=== PATIENT | male | born 1950 | race African-American/Black ===

== ENCOUNTER 2019-01-15 18:40 | Inpatient (IN) | payer MEDICARE, BC ==
[~2019-01-15] VITALS: Ht 177.8 cm; Wt 75.4 kg
[2019-01-15 19:50] VITALS: BP 142/92
[2019-01-15] MEDS ORDERED: ACETAMINOPHEN 325 MG TABLET PO PRN (20:45)
[2019-01-15] MEDS ORDERED: FLUTICASONE PROPIONATE 50 MCG/SPRAY 16 GM NASAL SPRAY NASAL PRN (21:00)
[2019-01-15] MEDS: SENNA 187 MG TABLET PO SCH (21:39)
[2019-01-15] MEDS: DOCUSATE SODIUM 100 MG CAPSULE PO SCH (21:39)
[2019-01-15] MEDS: APIXABAN 5 MG TABLET PO SCH (21:40)
[2019-01-15] MEDS: ATORVASTATIN CALCIUM 40 MG TABLET PO SCH (21:40)
[2019-01-15 23:00] VITALS: BP 140/82
[2019-01-16] MEDS: 0.9% SODIUM CHLORIDE 10 ML SYRINGE IVP SCH ×4 (00:17→23:24)
[2019-01-16 07:35] LABS: BASOPHILS % (AUTO) 0.8 % (0.0-2.0); EOSINOPHILS % (AUTO) 2.7 % (1.0-6.0); HEMATOCRIT 39.4 % (41-53); HEMOGLOBIN 13.5 g/dL (13.5-17.5); LYMPHOCYTES # (AUTO) 1.5 K/uL (1.0-4.8); LYMPHOCYTES % (AUTO) 39.7 % (22.0-44.0); MEAN CORPUSCULAR HEMOGLOBIN 32.8 pg (26.0-34.0); MEAN CORPUSCULAR HGB CONC 34.3 G/dL (31.0-37.0); MEAN CORPUSCULAR VOLUME 96 fL (80-100); MONOCYTES # (AUTO) 0.6 K/uL (0.1-1.0); MONOCYTES % (AUTO) 15.3 % (2.0-9.0); NEUTROPHILS # (AUTO) 1.6 K/uL (1.8-7.7); NEUTROPHILS % (AUTO) 41.5 % (40.0-70.0); PLATELET COUNT (AUTO) 182 K/uL (150-450); RED BLOOD CELL COUNT(AUTO) 4.12 MIL/uL (4.50-5.90); RED CELL DISTRIBUTION WIDTH 13.5 % (11.5-14.5)
[2019-01-16 08:06] LABS: ALANINE AMINOTRANSFERASE 18 U/L (12-78); ALBUMIN 3.5 g/dL (3.4-5.0); ALKALINE PHOSPHATASE 62 U/L (46-116); ANION GAP 9 mmol/L (8-16); ASPARTATE AMINOTRANSFERASE 16 U/L (15-37); BILIRUBIN,TOTAL 1.5 mg/dL (0.1-1.0); CARBON DIOXIDE 25 mmol/L (22-29); CHLORIDE 104 mmol/L (98-107); CREATININE 1.01 mg/dL (0.60-1.30); GLOMERULAR FILTR. RATE CALC > 60 mL/min (>60); GLUCOSE,RANDOM 94 mg/dL (70-110); POTASSIUM 3.8 mmol/L (3.5-5.1); SODIUM SERUM 138 mmol/L (136-145); TOTAL PROTEIN, SERUM 7.1 g/dL (6.4-8.2); UREA NITROGEN, BLOOD 12 mg/dL (7-18)
[2019-01-16] MEDS: CARVEDILOL 25 MG TABLET PO SCH ×2 (08:45→17:38)
[2019-01-16] MEDS: APIXABAN 5 MG TABLET PO SCH ×2 (08:46→21:08)
[2019-01-16] MEDS: TAMSULOSIN HCL 0.4 MG CAPSULE PO SCH (08:46)
[2019-01-16] MEDS: DOCUSATE SODIUM 100 MG CAPSULE PO SCH ×2 (08:46→21:08)
[2019-01-16] MEDS: ESCITALOPRAM OXALATE 10 MG TABLET PO SCH (08:46)
[2019-01-16] MEDS: CLOPIDOGREL BISULFATE 75 MG TABLET PO SCH (08:47)
[2019-01-16] MEDS: LISINOPRIL 20 MG TABLET PO SCH (08:47)
[2019-01-16 10:05] VITALS: BP 142/86
[2019-01-16] MEDS: HYDROCODONE/ACETAMINOPHEN 5-325 MG TABLET PO PRN (10:41)
[2019-01-16 15:50] VITALS: BP 139/84
[2019-01-16] MEDS: ATORVASTATIN CALCIUM 40 MG TABLET PO SCH (21:08)
[2019-01-16] MEDS: SENNA 187 MG TABLET PO SCH (21:08)
[2019-01-17 04:00] VITALS: BP 138/95
[2019-01-17] MEDS: CARVEDILOL 25 MG TABLET PO SCH ×2 (07:50→17:55)
[2019-01-17 07:54] VITALS: BP 128/71
[2019-01-17] MEDS: HYDROCODONE/ACETAMINOPHEN 5-325 MG TABLET PO PRN (07:54)
[2019-01-17] MEDS: APIXABAN 5 MG TABLET PO SCH ×2 (08:46→20:41)
[2019-01-17] MEDS: 0.9% SODIUM CHLORIDE 10 ML SYRINGE IVP SCH (08:46)
[2019-01-17] MEDS: TAMSULOSIN HCL 0.4 MG CAPSULE PO SCH (08:46)
[2019-01-17] MEDS: DOCUSATE SODIUM 100 MG CAPSULE PO SCH ×2 (08:47→20:41)
[2019-01-17] MEDS: CLOPIDOGREL BISULFATE 75 MG TABLET PO SCH (08:47)
[2019-01-17] MEDS: LISINOPRIL 20 MG TABLET PO SCH (08:47)
[2019-01-17] MEDS: ESCITALOPRAM OXALATE 10 MG TABLET PO SCH (08:49)
[2019-01-17 15:33] VITALS: BP 133/70
[2019-01-17 17:53] VITALS: BP 124/90
[2019-01-17] MEDS: SENNA 187 MG TABLET PO SCH (20:41)
[2019-01-17] MEDS: ATORVASTATIN CALCIUM 40 MG TABLET PO SCH (20:41)
[2019-01-18 00:54] VITALS: BP 108/71
[2019-01-18 07:40] VITALS: BP 119/79
[2019-01-18] MEDS: LISINOPRIL 20 MG TABLET PO SCH (07:56)
[2019-01-18] MEDS: CARVEDILOL 25 MG TABLET PO SCH ×2 (07:56→16:57)
[2019-01-18] MEDS: APIXABAN 5 MG TABLET PO SCH ×2 (07:56→20:25)
[2019-01-18] MEDS: TAMSULOSIN HCL 0.4 MG CAPSULE PO SCH (07:56)
[2019-01-18] MEDS: CLOPIDOGREL BISULFATE 75 MG TABLET PO SCH (07:56)
[2019-01-18] MEDS: DOCUSATE SODIUM 100 MG CAPSULE PO SCH ×2 (07:56→20:25)
[2019-01-18] MEDS: ESCITALOPRAM OXALATE 10 MG TABLET PO SCH (07:58)
[2019-01-18] MEDS: HYDROCODONE/ACETAMINOPHEN 5-325 MG TABLET PO PRN (10:51)
[2019-01-18 15:30] VITALS: BP 134/86
[2019-01-18 16:55] VITALS: BP 124/79
[2019-01-18 20:20] VITALS: BP 134/85
[2019-01-18] MEDS: ATORVASTATIN CALCIUM 40 MG TABLET PO SCH (20:25)
[2019-01-18] MEDS: SENNA 187 MG TABLET PO SCH (20:25)
[2019-01-18 23:45] VITALS: BP 136/84
[2019-01-19] MEDS: TAMSULOSIN HCL 0.4 MG CAPSULE PO SCH (07:44)
[2019-01-19] MEDS: APIXABAN 5 MG TABLET PO SCH ×2 (07:44→21:12)
[2019-01-19] MEDS: CLOPIDOGREL BISULFATE 75 MG TABLET PO SCH (07:44)
[2019-01-19] MEDS: LISINOPRIL 20 MG TABLET PO SCH (07:44)
[2019-01-19] MEDS: CARVEDILOL 25 MG TABLET PO SCH ×2 (07:44→16:56)
[2019-01-19] MEDS: DOCUSATE SODIUM 100 MG CAPSULE PO SCH ×2 (07:45→21:12)
[2019-01-19] MEDS: ESCITALOPRAM OXALATE 10 MG TABLET PO SCH (07:47)
[2019-01-19 07:51] VITALS: BP 143/89
[2019-01-19] MEDS: HYDROCODONE/ACETAMINOPHEN 5-325 MG TABLET PO PRN (07:51)
[2019-01-19 16:20] VITALS: BP 144/75
[2019-01-19] MEDS: DICLOFENAC SODIUM 1% 100 GM GEL [4GM] TP SCH ×2 (16:56→21:12)
[2019-01-19] MEDS: ATORVASTATIN CALCIUM 40 MG TABLET PO SCH (21:12)
[2019-01-19] MEDS: SENNA 187 MG TABLET PO SCH (21:12)
[2019-01-20 00:10] VITALS: BP 142/80
[2019-01-20] MEDS: HYDROCODONE/ACETAMINOPHEN 5-325 MG TABLET PO PRN ×2 (00:10→23:30)
[2019-01-20 07:20] VITALS: BP 134/80
[2019-01-20] MEDS: CARVEDILOL 25 MG TABLET PO SCH ×2 (07:52→16:57)
[2019-01-20] MEDS: CLOPIDOGREL BISULFATE 75 MG TABLET PO SCH (07:52)
[2019-01-20] MEDS: LISINOPRIL 20 MG TABLET PO SCH (07:52)
[2019-01-20] MEDS: ESCITALOPRAM OXALATE 10 MG TABLET PO SCH (07:52)
[2019-01-20] MEDS: APIXABAN 5 MG TABLET PO SCH ×2 (07:52→20:34)
[2019-01-20] MEDS: DOCUSATE SODIUM 100 MG CAPSULE PO SCH ×2 (07:52→20:34)
[2019-01-20] MEDS: TAMSULOSIN HCL 0.4 MG CAPSULE PO SCH (07:52)
[2019-01-20] MEDS: DICLOFENAC SODIUM 1% 100 GM GEL [4GM] TP SCH ×3 (07:53→20:34)
[2019-01-20] MEDS ORDERED: ATOR40TA71 PO (12:08)
[2019-01-20 15:35] VITALS: BP 121/72
[2019-01-20 16:55] VITALS: BP 123/88
[2019-01-20 20:32] VITALS: BP 130/83
[2019-01-20] MEDS: SENNA 187 MG TABLET PO SCH (20:34)
[2019-01-20] MEDS: ATORVASTATIN CALCIUM 40 MG TABLET PO SCH (20:34)
[2019-01-20 23:30] VITALS: BP 128/71
[2019-01-21] MEDS ORDERED: ESCI10TA PO (07:10)
[2019-01-21] MEDS ORDERED: CARV25 PO (07:10)
[2019-01-21] MEDS ORDERED: CLOP75TA3 PO (07:10)
[2019-01-21] MEDS ORDERED: SENN8.6T90 PO (07:10)
[2019-01-21] MEDS ORDERED: ATOR40TA28 PO (07:10)
[2019-01-21] MEDS ORDERED: TAMS-1 PO (07:10)
[2019-01-21] MEDS ORDERED: APIX5TAB PO (07:10)
[2019-01-21] MEDS ORDERED: SENN-176 PO (07:10)
[2019-01-21] MEDS ORDERED: DICL4100G TP (07:10)
[2019-01-21] MEDS ORDERED: DSS100 PO (07:10)
[2019-01-21] MEDS ORDERED: LISI-662 PO (07:10)
[2019-01-21 07:20] VITALS: BP 137/78
[2019-01-21] MEDS: APIXABAN 5 MG TABLET PO SCH ×2 (08:24→20:41)
[2019-01-21] MEDS: DOCUSATE SODIUM 100 MG CAPSULE PO SCH ×2 (08:24→20:41)
[2019-01-21] MEDS: LISINOPRIL 20 MG TABLET PO SCH (08:24)
[2019-01-21] MEDS: CARVEDILOL 25 MG TABLET PO SCH ×2 (08:25→17:34)
[2019-01-21] MEDS: ESCITALOPRAM OXALATE 10 MG TABLET PO SCH (08:25)
[2019-01-21] MEDS: TAMSULOSIN HCL 0.4 MG CAPSULE PO SCH (08:25)
[2019-01-21] MEDS: CLOPIDOGREL BISULFATE 75 MG TABLET PO SCH (08:25)
[2019-01-21] MEDS: DICLOFENAC SODIUM 1% 100 GM GEL [4GM] TP SCH ×3 (08:25→20:41)
[2019-01-21 17:03] VITALS: BP 142/89
[2019-01-21] MEDS: ATORVASTATIN CALCIUM 40 MG TABLET PO SCH (20:41)
[2019-01-21] MEDS: SENNA 187 MG TABLET PO SCH (20:41)
[2019-01-21 23:38] VITALS: BP 142/82
[2019-01-21] MEDS: HYDROCODONE/ACETAMINOPHEN 5-325 MG TABLET PO PRN (23:38)
[2019-01-22 07:49] VITALS: BP 130/82
[2019-01-22] MEDS: DOCUSATE SODIUM 100 MG CAPSULE PO SCH ×2 (08:01→20:07)
[2019-01-22] MEDS: TAMSULOSIN HCL 0.4 MG CAPSULE PO SCH (08:01)
[2019-01-22] MEDS: APIXABAN 5 MG TABLET PO SCH ×2 (08:01→20:07)
[2019-01-22] MEDS: CLOPIDOGREL BISULFATE 75 MG TABLET PO SCH (08:02)
[2019-01-22] MEDS: CARVEDILOL 25 MG TABLET PO SCH ×2 (08:02→16:22)
[2019-01-22] MEDS: LISINOPRIL 20 MG TABLET PO SCH (08:02)
[2019-01-22] MEDS: ESCITALOPRAM OXALATE 10 MG TABLET PO SCH (08:03)
[2019-01-22] MEDS: DICLOFENAC SODIUM 1% 100 GM GEL [4GM] TP SCH ×3 (08:04→20:07)
[2019-01-22 15:57] VITALS: BP 128/82
[2019-01-22] MEDS: SENNA 187 MG TABLET PO SCH (20:07)
[2019-01-22] MEDS: ATORVASTATIN CALCIUM 40 MG TABLET PO SCH (20:07)
[2019-01-23 00:15] VITALS: BP 142/94
[2019-01-23] MEDS: HYDROCODONE/ACETAMINOPHEN 5-325 MG TABLET PO PRN (00:15)
[2019-01-23 07:20] VITALS: BP 138/75
[2019-01-23] MEDS: CLOPIDOGREL BISULFATE 75 MG TABLET PO SCH (08:07)
[2019-01-23] MEDS: DOCUSATE SODIUM 100 MG CAPSULE PO SCH ×2 (08:07→21:05)
[2019-01-23] MEDS: APIXABAN 5 MG TABLET PO SCH ×2 (08:07→21:05)
[2019-01-23] MEDS: TAMSULOSIN HCL 0.4 MG CAPSULE PO SCH (08:07)
[2019-01-23] MEDS: ESCITALOPRAM OXALATE 10 MG TABLET PO SCH (08:07)
[2019-01-23] MEDS: LISINOPRIL 20 MG TABLET PO SCH (08:07)
[2019-01-23] MEDS: DICLOFENAC SODIUM 1% 100 GM GEL [4GM] TP SCH ×3 (08:08→21:05)
[2019-01-23] MEDS: CARVEDILOL 25 MG TABLET PO SCH ×2 (08:08→17:24)
[2019-01-23 16:56] VITALS: BP 126/63
[2019-01-23] MEDS: SENNA 187 MG TABLET PO SCH (21:05)
[2019-01-23] MEDS: ATORVASTATIN CALCIUM 40 MG TABLET PO SCH (21:06)
[2019-01-24] MEDS: HYDROCODONE/ACETAMINOPHEN 5-325 MG TABLET PO PRN ×2 (00:53→23:24)
[2019-01-24 01:00] VITALS: BP 155/96
[2019-01-24 07:30] VITALS: BP 127/87
[2019-01-24] MEDS: TAMSULOSIN HCL 0.4 MG CAPSULE PO SCH (08:01)
[2019-01-24] MEDS: CLOPIDOGREL BISULFATE 75 MG TABLET PO SCH (08:01)
[2019-01-24] MEDS: CARVEDILOL 25 MG TABLET PO SCH ×2 (08:01→16:51)
[2019-01-24] MEDS: LISINOPRIL 20 MG TABLET PO SCH (08:01)
[2019-01-24] MEDS: DOCUSATE SODIUM 100 MG CAPSULE PO SCH ×2 (08:01→20:13)
[2019-01-24] MEDS: APIXABAN 5 MG TABLET PO SCH ×2 (08:01→20:14)
[2019-01-24] MEDS: DICLOFENAC SODIUM 1% 100 GM GEL [4GM] TP SCH ×3 (08:02→20:13)
[2019-01-24] MEDS: ESCITALOPRAM OXALATE 10 MG TABLET PO SCH (08:02)
[2019-01-24 16:08] VITALS: BP 148/84
[2019-01-24] MEDS: ATORVASTATIN CALCIUM 40 MG TABLET PO SCH (20:13)
[2019-01-24] MEDS: SENNA 187 MG TABLET PO SCH (20:13)
[2019-01-24 20:18] VITALS: BP 120/74
[2019-01-24 23:24] VITALS: BP 142/86
[2019-01-25] MEDS: CLOPIDOGREL BISULFATE 75 MG TABLET PO SCH (07:42)
[2019-01-25] MEDS: DOCUSATE SODIUM 100 MG CAPSULE PO SCH ×2 (07:42→20:30)
[2019-01-25] MEDS: ESCITALOPRAM OXALATE 10 MG TABLET PO SCH (07:43)
[2019-01-25] MEDS: TAMSULOSIN HCL 0.4 MG CAPSULE PO SCH (07:44)
[2019-01-25] MEDS: DICLOFENAC SODIUM 1% 100 GM GEL [4GM] TP SCH ×3 (07:44→20:30)
[2019-01-25] MEDS: CARVEDILOL 25 MG TABLET PO SCH ×2 (07:44→18:21)
[2019-01-25] MEDS: LISINOPRIL 20 MG TABLET PO SCH (07:44)
[2019-01-25] MEDS: APIXABAN 5 MG TABLET PO SCH ×2 (07:44→20:30)
[2019-01-25 07:47] VITALS: BP 127/76
[2019-01-25 18:16] VITALS: BP 125/66
[2019-01-25] MEDS: SENNA 187 MG TABLET PO SCH (20:30)
[2019-01-25] MEDS: ATORVASTATIN CALCIUM 40 MG TABLET PO SCH (20:30)
[2019-01-25 23:34] VITALS: BP 135/84
[2019-01-25] MEDS: HYDROCODONE/ACETAMINOPHEN 5-325 MG TABLET PO PRN (23:34)
[2019-01-26 07:22] VITALS: BP 134/83
[2019-01-26] MEDS: LISINOPRIL 20 MG TABLET PO SCH (08:08)
[2019-01-26] MEDS: TAMSULOSIN HCL 0.4 MG CAPSULE PO SCH (08:08)
[2019-01-26] MEDS: CARVEDILOL 25 MG TABLET PO SCH ×2 (08:08→17:45)
[2019-01-26] MEDS: CLOPIDOGREL BISULFATE 75 MG TABLET PO SCH (08:08)
[2019-01-26] MEDS: DOCUSATE SODIUM 100 MG CAPSULE PO SCH ×2 (08:08→20:25)
[2019-01-26] MEDS: APIXABAN 5 MG TABLET PO SCH ×2 (08:08→20:25)
[2019-01-26] MEDS: ESCITALOPRAM OXALATE 10 MG TABLET PO SCH (08:09)
[2019-01-26] MEDS: DICLOFENAC SODIUM 1% 100 GM GEL [4GM] TP SCH ×3 (08:10→20:25)
[2019-01-26 16:00] VITALS: BP 132/68
[2019-01-26 17:43] VITALS: BP 120/70
[2019-01-26] MEDS: SENNA 187 MG TABLET PO SCH (20:25)
[2019-01-26] MEDS: ATORVASTATIN CALCIUM 40 MG TABLET PO SCH (20:25)
[2019-01-26 23:41] VITALS: BP 132/68
[2019-01-26] MEDS: HYDROCODONE/ACETAMINOPHEN 5-325 MG TABLET PO PRN (23:41)
[2019-01-27] MEDS ORDERED: HYDR-4061 PO (07:02)
[2019-01-27 07:27] VITALS: BP 130/80
[2019-01-27] MEDS: CLOPIDOGREL BISULFATE 75 MG TABLET PO SCH (08:12)
[2019-01-27] MEDS: CARVEDILOL 25 MG TABLET PO SCH ×2 (08:12→17:01)
[2019-01-27] MEDS: APIXABAN 5 MG TABLET PO SCH ×2 (08:13→20:03)
[2019-01-27] MEDS: TAMSULOSIN HCL 0.4 MG CAPSULE PO SCH (08:13)
[2019-01-27] MEDS: LISINOPRIL 20 MG TABLET PO SCH (08:13)
[2019-01-27] MEDS: DOCUSATE SODIUM 100 MG CAPSULE PO SCH ×2 (08:13→20:03)
[2019-01-27] MEDS: ESCITALOPRAM OXALATE 10 MG TABLET PO SCH (08:14)
[2019-01-27] MEDS: DICLOFENAC SODIUM 1% 100 GM GEL [4GM] TP SCH ×3 (08:18→20:04)
[2019-01-27 15:30] VITALS: BP 133/74
[2019-01-27 17:00] VITALS: BP 132/59
[2019-01-27] MEDS: ATORVASTATIN CALCIUM 40 MG TABLET PO SCH (20:03)
[2019-01-27] MEDS: SENNA 187 MG TABLET PO SCH (20:03)
[2019-01-27] MEDS ORDERED: CARV25 PO (22:38)
[2019-01-27] MEDS ORDERED: ESCI10TA PO (22:38)
[2019-01-27] MEDS ORDERED: DOCU-275 PO (22:38)
[2019-01-27] MEDS ORDERED: LISI-662 PO (22:38)
[2019-01-27] MEDS ORDERED: CLOP75TA3 PO (22:38)
[2019-01-27] MEDS ORDERED: DICL4100G TP (22:38)
[2019-01-27] MEDS ORDERED: ATOR40TA28 PO (22:38)
[2019-01-27] MEDS ORDERED: TAMS-1 PO (22:38)
[2019-01-27] MEDS ORDERED: APIX5TAB PO (22:38)
[2019-01-27 23:41] VITALS: BP 145/87
[2019-01-27] MEDS: HYDROCODONE/ACETAMINOPHEN 5-325 MG TABLET PO PRN (23:41)
[2019-01-28 07:20] VITALS: BP 150/92
[2019-01-28] MEDS: CARVEDILOL 25 MG TABLET PO SCH ×2 (07:40→16:39)
[2019-01-28] MEDS: DICLOFENAC SODIUM 1% 100 GM GEL [4GM] TP SCH ×3 (08:25→20:03)
[2019-01-28] MEDS: APIXABAN 5 MG TABLET PO SCH ×2 (08:26→20:04)
[2019-01-28] MEDS: TAMSULOSIN HCL 0.4 MG CAPSULE PO SCH (08:26)
[2019-01-28] MEDS: DOCUSATE SODIUM 100 MG CAPSULE PO SCH ×2 (08:26→20:03)
[2019-01-28] MEDS: LISINOPRIL 20 MG TABLET PO SCH (08:26)
[2019-01-28] MEDS: CLOPIDOGREL BISULFATE 75 MG TABLET PO SCH (08:26)
[2019-01-28] MEDS: ESCITALOPRAM OXALATE 10 MG TABLET PO SCH (08:28)
[2019-01-28 09:55] VITALS: BP 135/78
[2019-01-28 18:25] VITALS: BP 126/76
[2019-01-28] MEDS: ATORVASTATIN CALCIUM 40 MG TABLET PO SCH (20:04)
[2019-01-28] MEDS: SENNA 187 MG TABLET PO SCH (20:04)
[2019-01-28 23:33] VITALS: BP 140/85
[2019-01-28] MEDS: HYDROCODONE/ACETAMINOPHEN 5-325 MG TABLET PO PRN (23:33)
[2019-01-29] MEDS: CARVEDILOL 25 MG TABLET PO SCH (07:40)
[2019-01-29 08:22] VITALS: BP 154/89
[2019-01-29] MEDS: DOCUSATE SODIUM 100 MG CAPSULE PO SCH (08:46)
[2019-01-29] MEDS: TAMSULOSIN HCL 0.4 MG CAPSULE PO SCH (08:46)
[2019-01-29] MEDS: ESCITALOPRAM OXALATE 10 MG TABLET PO SCH (08:47)
[2019-01-29] MEDS: DICLOFENAC SODIUM 1% 100 GM GEL [4GM] TP SCH (08:47)
[2019-01-29] MEDS: LISINOPRIL 20 MG TABLET PO SCH (08:47)
[2019-01-29] MEDS: CLOPIDOGREL BISULFATE 75 MG TABLET PO SCH (08:47)
[2019-01-29] MEDS: APIXABAN 5 MG TABLET PO SCH (08:47)
[2019-01-30] MEDS ORDERED: ESCITALOPRAM OXALATE 10 MG TABLET PO SCH (09:00)
== END 2019-01-29 10:30 | disposition home or self-care (01) | DRG 56 ==
LOC: 2WR 18:40
PROVIDERS: ADMIT Physical Medicine & Rehabilitation; ATTEND Physical Medicine & Rehabilitation
DX: I69.351 Hemiplegia and hemiparesis following cerebral infarction affecting right dominant side (principal); I63.9 Cerebral infarction, unspecified; E78.5 Hyperlipidemia, unspecified; F32.9 Major depressive disorder, single episode, unspecified; G89.29 Other chronic pain; I11.0 Hypertensive heart disease with heart failure; K59.03 Drug induced constipation; T40.2X5A Adverse effect of other opioids, initial encounter; I50.9 Heart failure, unspecified; M48.00 Spinal stenosis, site unspecified; N40.1 Benign prostatic hyperplasia with lower urinary tract symptoms; Z79.01 Long term (current) use of anticoagulants; Z79.02 Long term (current) use of antithrombotics/antiplatelets; Z79.899 Other long term (current) drug therapy; Z80.9 Family history of malignant neoplasm, unspecified; Z91.14 Patient's other noncompliance with medication regimen
CPT/HCPCS: 87081; 92507; 92508; 92523; 97110; 97112; 97116; 97150; 97163; 97166; 97530; 97535; 99366

== ENCOUNTER → 2019-05-06 | Outpatient (CLI) | payer MEDICARE, BC ==
[~2019-05-06] MED LIST: APIX5TAB PO; ATOR40TA28 PO; CARV25 PO; CLOP75TA3 PO; DICL4100G TP; DOCU-275 PO; ESCI10TA PO; LISI-662 PO; TAMS-1 PO
[2019-05-06 12:51] LABS: FOLATE SERUM 9.1 ng/mL (5.4-)
[2019-05-06 13:28] LABS: THYROID STIMULATING HORMONE 1.12 uIU/mL (0.36-3.74)
[2019-05-06 14:29] LABS: HEMOGLOBIN A1C 6.1 % (4.5-6.2)
== END | disposition home or self-care (01) ==
LOC: LABPV 10:12
PROVIDERS: ATTEND Physical Medicine & Rehabilitation
DX: I11.0 Hypertensive heart disease with heart failure (principal); I50.9 Heart failure, unspecified; I48.91 Unspecified atrial fibrillation; E78.5 Hyperlipidemia, unspecified; Z79.899 Other long term (current) drug therapy
CPT/HCPCS: 82607; 82746; 83036; 84443